=== PATIENT | female | born 2000 | race Two or more races ===

== ENCOUNTER 2018-02-24 11:52 | Emergency (ER) | payer OTHER ==
[~2018-02-24] VITALS: Ht 154.9 cm; Wt 56.7 kg
[2018-02-24 12:20] VITALS: BP 119/88
[2018-02-24] MEDS ORDERED: KETOROLAC TROMETH 30 MG/ML 1ML VIAL IM ONE (12:30)
[2018-02-24] MEDS ORDERED: METHOCARBAMOL 500 MG TAB PO ONE (12:30)
== END 2018-02-24 14:46 | disposition home or self-care (01) ==
LOC: EDBD 11:52 → ER 11:52
DX: S13.4XXA Sprain of ligaments of cervical spine, initial encounter (principal); J32.9 Chronic sinusitis, unspecified; V43.52XA Car driver injured in collision with other type car in traffic accident, initial encounter; Y93.89 Activity, other specified; Y99.8 Other external cause status; Y92.410 Unspecified street and highway as the place of occurrence of the external cause
CPT/HCPCS: 70450; 96372; 99284; J1885

== ENCOUNTER 2018-03-10 23:08 | Emergency (ER) | payer OTHER ==
[~2018-03-10] VITALS: Ht 154.9 cm; Wt 56.7 kg
[2018-03-10 23:37] VITALS: BP 107/65
[2018-03-11] MEDS ORDERED: diphenhdrAMINE HCL 25 MG CAP PO ONE ×2 (00:45→01:06)
[2018-03-11] MEDS ORDERED: methylPREDNISolone SOD SUCC 125 MG/2 ML VL IM ONE (00:45)
== END 2018-03-11 01:25 | disposition home or self-care (01) ==
LOC: ER 23:12
DX: T78.40XA Allergy, unspecified, initial encounter (principal)
CPT/HCPCS: 96372; 99283; J2930

== ENCOUNTER 2018-08-14 00:16 | Emergency (ER) | payer OTHER ==
[~2018-08-14] VITALS: Ht 154.9 cm; Wt 59.0 kg
[2018-08-14 00:56] LABS: Basophils # (auto) 0.1 uL; Basophils % (auto) 0.5 % (0.0-2.0); Eosinophils # (auto) 0.1 uL; Eosinophils % (auto) 1.3 % (0.0-7.0); Hematocrit 44.4 % (36.0-46.0); Hemoglobin 14.9 g/dL (12.2-16.2); Lymphocytes # (auto) 1.8 uL; Lymphocytes % (auto) 18.3 % (10.0-50.0); Mean Corpuscular Hemoglobin 28.9 pg (28.0-32.0); Mean Corpuscular Hgb Conc. 33.5 g/dL (32.0-36.0); Mean Corpuscular Volume 86.1 fL (80.0-100.0); Monocytes # (auto) 0.7 uL; Monocytes % (auto) 6.5 % (0.0-12.0); Neutrophils # (auto) 7.3 uL; Neutrophils % (auto) 73.4 % (37.0-80.0); Nucleated Red Blood Cells % 0.1 %; Platelet Count (auto) 247 10^3/uL (140-450); Red Blood Cells 5.15 10^6/uL (4.0-5.20); Red Cell Distribution Width 12.6 % (11.8-14.3)
[2018-08-14 01:08] LABS: Urine WBC None Seen /hpf (0 - 5)
[2018-08-14 01:20] LABS: Albumin 4.2 g/dL (3.4-5.0); BUN/Creatinine Ratio 9.9; Calcium 9.1 mg/dL (8.5-10.1); Potassium 3.1 mmol/L (3.5-5.1)
[2018-08-14 01:23] LABS: Bilirubin, Total 0.5 mg/dL (0.2-1.0)
[2018-08-14 01:27] LABS: Urine Bacteria NONE SEEN /hpf (None Seen); Urine Blood Negative /uL (Negative); Urine Mucus FEW (None Seen); Urine Specific Gravity 1.029 (1.001-1.035)
[2018-08-14] MEDS ORDERED: metroNIDAZOLE 500 MG TAB PO ONE (03:45)
[2018-08-14] MEDS ORDERED: cefTRIAXone 1GM/50ML D5W 50 ML IV ONE (03:45)
[2018-08-14] MEDS ORDERED: SODIUM CHLORIDE 0.9% 1,000 ML IV ONE (03:45)
[2018-08-14 04:15] VITALS: BP 115/76
[2018-08-14] MEDS ORDERED: ONDANSETRON HCL 4 MG/2 ML VIAL ONE (04:24)
[2018-08-14] MEDS ORDERED: ONDANSETRON HCL 4 MG/2 ML VIAL IV ONE (04:45)
== END 2018-08-14 05:05 | disposition home or self-care (01) ==
LOC: ER 00:17
DX: A05.9 Bacterial foodborne intoxication, unspecified (principal); J45.909 Unspecified asthma, uncomplicated
CPT/HCPCS: 36415; 74176; 80053; 81001; 81025; 85025; 96365; 96375; 99285; J0696; J2405; J7030

== ENCOUNTER 2018-08-20 23:16 | Emergency (ER) | payer OTHER ==
[~2018-08-20] VITALS: Ht 154.9 cm; Wt 54.4 kg
[2018-08-21 00:14] LABS: Basophils # (auto) 0 uL; Basophils % (auto) 0.6 % (0.0-2.0); Eosinophils # (auto) 0.1 uL; Eosinophils % (auto) 2.1 % (0.0-7.0); Hematocrit 45.4 % (36.0-46.0); Hemoglobin 15.5 g/dL (12.2-16.2); Lymphocytes # (auto) 1.9 uL; Lymphocytes % (auto) 30.8 % (10.0-50.0); Mean Corpuscular Hemoglobin 29.1 pg (28.0-32.0); Mean Corpuscular Hgb Conc. 34.2 g/dL (32.0-36.0); Mean Corpuscular Volume 85.2 fL (80.0-100.0); Monocytes # (auto) 0.7 uL; Monocytes % (auto) 10.5 % (0.0-12.0); Neutrophils # (auto) 3.5 uL; Platelet Count (auto) 270 10^3/uL (140-450); Red Blood Cells 5.33 10^6/uL (4.0-5.20); Red Cell Distribution Width 12.8 % (11.8-14.3); White Blood Cell 6.3 10^3/uL (4.4-10.8)
[2018-08-21 00:20] LABS: Urine Bacteria FEW /hpf (None Seen); Urine Blood Negative /uL (Negative); Urine Mucus FEW (None Seen); Urine Specific Gravity 1.035 (1.001-1.035); Urine WBC 1 /hpf (0 - 5)
[2018-08-21 00:30] LABS: Albumin 4.2 g/dL (3.4-5.0); Calcium 9.1 mg/dL (8.5-10.1); Magnesium 2.1 mg/dL (1.6-2.6); Potassium 3.8 mmol/L (3.5-5.1)
[2018-08-21] MEDS ORDERED: metroNIDAZOLE 500MG/100ML 100 ML IV ONE (00:30)
[2018-08-21] MEDS ORDERED: ONDANSETRON HCL 4 MG/2 ML VIAL IV ONE ×2 (00:30→02:30)
[2018-08-21] MEDS ORDERED: LEVOFLOXACIN 500MG 100 ML IV ONE (00:30)
[2018-08-21] MEDS ORDERED: SODIUM CHLORIDE 0.9% 1,000 ML IV ONE (00:30)
[2018-08-21 00:33] LABS: Bilirubin, Total 0.6 mg/dL (0.2-1.0)
[2018-08-21] MEDS ORDERED: ONDANSETRON HCL 4 MG/2 ML VIAL ONE (02:27)
[2018-08-21] MEDS ORDERED: FAMOTIDINE (10MG/ML) 2ML VL IV ONE (03:00)
[2018-08-21] MEDS ORDERED: LORazepam 2MG/ML-1ML VIAL IV ONE (03:00)
[2018-08-21 03:03] VITALS: BP 124/74
== END 2018-08-21 04:22 | disposition home or self-care (01) ==
LOC: ER 23:19
DX: K52.9 Noninfective gastroenteritis and colitis, unspecified (principal); J45.909 Unspecified asthma, uncomplicated
CPT/HCPCS: 36415; 80053; 81001; 83690; 83735; 84702; 85025; 96365; 96368; 96375; 96376; 99283; J1956; J2060; J2405; J3490